=== PATIENT | female | born 1990 | race Two or more races ===

== ENCOUNTER 2020-11-21 09:51 | Outpatient (CLI) | payer OTHER | END 2020-11-21 10:51 | disposition home or self-care (01) | LOC: PPH VACUNA 09:51 | PROVIDERS: ATTEND Emergency Medicine Pediatric Emergency Medicine | DX: Z23 Encounter for immunization (principal) ==

== ENCOUNTER 2021-05-08 06:36 | Outpatient (CLI) | payer OTHER | END 2021-05-08 06:43 | disposition home or self-care (01) | LOC: LAB 06:36 | PROVIDERS: ATTEND Obstetrics & Gynecology | DX: N39.0 Urinary tract infection, site not specified (principal); D50.9 Iron deficiency anemia, unspecified; E03.9 Hypothyroidism, unspecified; A60.03 Herpesviral cervicitis; N02 Recurrent and persistent hematuria ==